=== PATIENT | female | born 1985 | race Caucasian/White ===

== ENCOUNTER 2018-08-27 13:53 | Emergency (ER) | payer SELFPAY ==
--- NOTE | 2018-08-27 18:22 | ER ---
Nurse's Notes [facility] Name: Fabienne Noland Age: 33 yrs Sex: Female : 1985 Arrival Date: 08/27/2018 Time: 13:58 Bed Waiting Private MD: None, None Diagnosis: Presentation: 08/27 14:39 Presenting complaint: Patient states: lump in left breast that patient noticed 5 days ss ago, but pain has been getting progressively worse as well as a rash that has developed on the skin. Transition of care: patient was not received from another setting of care. Onset of symptoms was August 23, 2018. Risk Assessment: Do you want to hurt yourself or someone else? Patient reports no desire to harm self or others. Initial Sepsis Screen: Does the patient meet any 2 criteria? No. Patient's initial sepsis screen is negative. Does the patient have a suspected source of infection? Yes: Skin breakdown/wound. Care prior to arrival: None. 14:39 Method Of Arrival: Ambulatory ss 14:39 Acuity: ANDREW 3 ss Historical: - Allergies: 14:42 No Known Allergies; ss - PMHx: 14:42 Anxiety; Depression; suicidal ideations; ss - PSHx: 14:42 c section; ss - Immunization history:: Adult Immunizations up to date. - Social history:: Smoking status: Patient/guardian denies using tobacco. - Ebola Screening: : Patient denies exposure to infectious person Patient denies travel to an Ebola-affected area in the 21 days before illness onset. Vital Signs: 14:42 BP 135 / 94; Pulse 83; Resp 15; Temp 97.9(TE); Pulse Ox 100% on R/A; Weight 77.11 kg; ss Height 5 ft. 8 in. (172.72 cm); Pain 10/10; 14:42 Body Mass Index 25.85 (77.11 kg, 172.72 cm) ss ED Course: 13:58 Patient arrived in ED. mr 13:58 None, None is Private Physician. mr 14:41 Triage completed. ss 14:42 Arm band placed on right wrist. ss 17:32 Patient's name was called from ER lobby. No response. aa5 17:48 Patient's name was called from ER lobby. No response. aa5 18:00 Patient's name was called from ER lobby. No response. aa5 18:15 Patient's name was called from [facility]. No response. aa5 18:22 Manny Martell MD is Attending Physician. aa5 Administered Medications: No medications were administered Outcome: 18:22 Patient left the ED. aa5 Signatures: LagosDeb mr IbarraJyoti, RN RN aa5 Jonna Fierro RN RN ss
[2018-08-27 19:07] VITALS: BP 135/94; TEMP 97.9; O2SAT 100
== END 2018-08-27 18:22 | disposition left against medical advice (07) ==
LOC: ER 13:53
DX: Z53.21 Procedure and treatment not carried out due to patient leaving prior to being seen by health care provider (principal)
CPT/HCPCS: 99281

== ENCOUNTER 2018-08-27 22:19 | Observation (INO) | payer SELFPAY ==
--- NOTE | 2018-08-27 23:09 | ER ---
Nurse's Notes [facility] Name: Fabienne Noland Age: 33 yrs Sex: Female : 1985 Arrival Date: 08/27/2018 Time: : Bed 14 Private MD: Diagnosis: Left breast abscess Presentation: 08/27 22:49 Presenting complaint: Patient states: she started having left breast pain on Thursday bb which has gotten progressively worse now has redness and there is a lump. Transition of care: patient was not received from another setting of care. Onset of symptoms was August 23, 2018. Risk Assessment: Do you want to hurt yourself or someone else? Patient reports no desire to harm self or others. Initial Sepsis Screen: Does the patient meet any 2 criteria? No. Patient's initial sepsis screen is negative. Does the patient have a suspected source of infection? Yes: Skin breakdown/wound. Care prior to arrival: None. 22:49 Method Of Arrival: Ambulatory bb 22:49 Acuity: ANDREW 3 bb Triage Assessment: 22:53 General: Behavior is calm, cooperative. 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 - Social history:: Smoking status: Patient uses tobacco products, smokes one pack cigarettes per day. Patient uses alcohol, occasionally. - Ebola Screening: : No symptoms or risks identified at this time. Screenin:53 Abuse screen: Denies threats or abuse. Nutritional screening: No deficits noted. bb Tuberculosis screening: No symptoms or risk factors identified. Fall Risk None identified. Assessment: 22:38 General: Appears in no apparent distress. uncomfortable. Pain: Complains of pain in bb left breast. Neuro: Level of Consciousness is awake, alert, obeys commands, Oriented to person, place, time, situation. Cardiovascular: No deficits noted. Respiratory: Respiratory effort is even, unlabored. GI: No signs and/or symptoms were reported involving the gastrointestinal system. : No signs and/or symptoms were reported regarding the genitourinary system. Derm: Abscess located on left breast. Musculoskeletal: Circulation, motion, and sensation intact. 22:50 Reassessment: Dr Hurt at bedside for discussion of findings and plan of care pt to be bb admitted for surgery I\T\D to left breast in the morning pt verbalized understanding of and agrees to plan of care. Vital Signs: 22:38 BP 147 / 103; Pulse 107; Resp 16 S; Temp 98.2(O); Pulse Ox 98% on R/A; Weight 79.38 kg bb (R); Height 5 ft. 8 in. (172.72 cm) (R); Pain 8/10; 22:38 Body Mass Index 26.61 (79.38 kg, 172.72 cm) bb ED Course: 22:15 Inserted saline lock: 20 gauge in right forearm, using aseptic technique. Blood rr5 collected. 22:23 Patient arrived in ED. ag3 22:33 Rafael Harris NP is PHCP. pm1 22:33 Storm Hurt MD is Attending Physician. pm1 22:33 Carmen Doan, GLADIS is Primary Nurse. bb 22:45 assisted Son Harris NP and Dr Hurt with breast exam. bb 22:51 Triage completed. bb 22:52 Arm band placed on Patient placed in an exam room, on a stretcher, on pulse oximetry. bb 22:53 Patient has correct armband on for positive identification. Bed in low position. Call bb light in reach. 22:56 BREAST/AXILLA, LIMITED In Process Unspecified. EDMS 23:08 Jmaes Black MD is Hospitalizing Provider. pm1 23:57 Patient admitted, IV remains in place. bb Administered Medications: 22:15 Drug: [place] 5 mg-325 mg 1 tabs Route: PO; rr5 23:54 Drug: Clindamycin 900 mg Route: IVPB; Infused Over: 30 mins; Site: right forearm; lp1 Outcome: 23:09 Decision to Hospitalize by Provider. pm1 23:51 Admitted to Med/surg bb 23:51 Condition: stable 23:51 Instructed on the need for admit. 08/28 00:01 Admitted to ER Hold. Please see [facility] for further documentation. bb 12:42 Patient left the ED. iw Signatures: Dispatcher [employer] EDMS Carmen Doan, GLADIS RN bb Shania Schwartz RN RN iw Isamar Ruiz RN RN lp1 Rafael Harris, ORNAMENTAL PLASTERER HELPER ORNAMENTAL PLASTERER HELPER pm1 Maria Del Carmen Mcdowell ag3 Juan Gonzales, RN RN rr5
[2018-08-27] MEDS ORDERED: ONDANSETRON 4 MG/2 ML VIAL IV PRN (23:10)
--- NOTE | 2018-08-27 23:10 | EDPHYS ---
Physician Documentation [facility] Name: Fabienne Noland Age: 33 yrs Sex: Female : 1985 Arrival Date: 08/27/2018 Time: 22:23 Bed 14 Private MD: ED Physician Storm Hurt HPI: 08/27 23:00 This 33 yrs old Female presents to ER via Ambulatory with complaints of pm1 Breast Problem. 23:00 the patient presents with a swollen area of the left breast. Description: swollen, pm1 tense. Onset: The symptoms/episode began/occurred 5 day(s) ago. Possible cause(s): unknown. Associated signs and symptoms: Pertinent negatives: discharge, drainage, fever. Modifying factors: the symptoms are alleviated by nothing, the symptoms are aggravated by touching. Severity of symptoms: in the emergency department the symptoms are actually worse. The patient has not experienced similar symptoms in the past. The patient has not recently seen a physician. Patient with onset of breast pain and tenderness Thursday that has progressively gotten worse. Patient removed nipple bar/piercing yesterday. Nipple piercings are 8 months old. 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 - Social history:: Smoking status: Patient uses tobacco products, smokes one pack cigarettes per day. Patient uses alcohol, occasionally. - Ebola Screening: : No symptoms or risks identified at this time. ROS: 23:00 Constitutional: Negative for fever, chills, and weight loss, Eyes: Negative for injury, pm1 pain, redness, and discharge, ENT: Negative for injury, pain, and discharge, Neck: Negative for injury, pain, and swelling, Cardiovascular: Negative for chest pain, palpitations, and edema, Respiratory: Negative for shortness of breath, cough, wheezing, and pleuritic chest pain, Abdomen/GI: Negative for abdominal pain, nausea, vomiting, diarrhea, and constipation, Back: Negative for injury and pain, MS/Extremity: Negative for injury and deformity. 23:00 Neuro: Negative for headache, weakness, numbness, tingling, and seizure. 23:00 Skin: Positive for abscess, cellulitis, of the left breast. Exam: 23:00 Constitutional: This is a well developed, well nourished patient who is awake, alert, pm1 and in no acute distress. Head/Face: Normocephalic, atraumatic. Eyes: Pupils equal round and reactive to light, extra-ocular motions intact. Lids and lashes normal. Conjunctiva and sclera are non-icteric and not injected. Cornea within normal limits. Periorbital areas with no swelling, redness, or edema. ENT: Nares patent. No nasal discharge, no septal abnormalities noted. Tympanic membranes are normal and external auditory canals are clear. Oropharynx with no redness, swelling, or masses, exudates, or evidence of obstruction, uvula midline. Mucous membranes moist. Neck: Trachea midline, no thyromegaly or masses palpated, and no cervical lymphadenopathy. Supple, full range of motion without nuchal rigidity, or vertebral point tenderness. No Meningismus. Chest/axilla: Normal chest wall appearance and motion. Nontender with no deformity. No lesions are appreciated. Cardiovascular: Regular rate and rhythm with a normal S1 and S2. No gallops, murmurs, or rubs. Normal PMI, no JVD. No pulse deficits. Respiratory: Lungs have equal breath sounds bilaterally, clear to auscultation and percussion. No rales, rhonchi or wheezes noted. No increased work of breathing, no retractions or nasal flaring. Abdomen/GI: Soft, non-tender, with normal bowel sounds. No distension or tympany. No guarding or rebound. No evidence of tenderness throughout. Back: No spinal tenderness. No costovertebral tenderness. Full range of motion. 23:00 MS/ Extremity: Pulses equal, no cyanosis. Neurovascular intact. Full, normal range of motion. 23:00 Skin: Appearance: normal except for affected area, abscess, that is moderate sized, approximately 3 cm(s), of the left nipple and left breast, with induration, no drainage, no pointing. 23:00 Neuro: Orientation: is normal, Motor: is normal, moves all fours. Vital Signs: 22:38 BP 147 / 103; Pulse 107; Resp 16 S; Temp 98.2(O); Pulse Ox 98% on R/A; Weight 79.38 kg bb (R); Height 5 ft. 8 in. (172.72 cm) (R); Pain 8/10; 22:38 Body Mass Index 26.61 (79.38 kg, 172.72 cm) bb MDM: 22:35 Patient medically screened. pm1 23:08 Data reviewed: vital signs. Data interpreted: Pulse oximetry: on room air is 98 %. pm1 Interpretation: normal. 23:10 Physician consultation: James Hurt discussed patient diagnosis condition pm1 with Dr. Black. Wayne requested IV antibiotic, IV fluids, pain mediations, NPO at midnight. He will evaluate the patient and drain abscess tomorrow. 08/27 22:46 Order name: CBC with Diff; Complete Time: 23:28 pm1 08/27 22:46 Order name: CMP; Complete Time: 23:43 pm1 08/28 00:09 Order name: Urine Dipstick--Ancillary (enter results) ms 08/28 00:09 Order name: Urine --Ancillary (enter results) ms 08/28 00:56 Order name: Urine --Ancillary; Complete Time: 01:57 EDMS 08/28 00:56 Order name: Urine Dipstick-Ancillary; Complete Time: 01:57 EDMS 08/27 22:46 Order name: IV Saline Lock; Complete Time: 23:17 pm1 08/27 22:46 Order name: Urine Test (obtain specimen); Complete Time: 23:54 pm1 08/27 22:46 Order name: Urine Dipstick-Ancillary (obtain specimen); Complete Time: 23:54 pm1 08/27 22:47 Order name: BREAST/AXILLA, LIMITED; Complete Time: 06:59 EDMS 08/27 23:18 Order name: NPO EDMS 08/27 23:03 Order name: NPO; Complete Time: 23:39 pm1 Administered Medications: 22:15 Drug: [place] 5 mg-325 mg 1 tabs Route: PO; rr5 23:54 Drug: Clindamycin 900 mg Route: IVPB; Infused Over: 30 mins; Site: right forearm; lp1 Disposition: 08/27/18 23:09 Hospitalization ordered by James Black for Observation. Preliminary diagnosis is Left breast abscess. - Bed requested for [facility] ER HOLD. - Status is Observation. iw - Condition is Stable. - Problem is new. - Symptoms have improved. UTI on Admission? No Addendum: 08/30/2018 06:59 Co-signature as Attending Physician, Storm Hurt MD. r n Signatures: Dispatcher [employer] [facility] Keila Deal RN RN fc Carmen Doan, RN RN bb Shania Schwartz RN RN iw Storm Hurt MD MD rn Pena, Laura, RN RN lp1 Rafael Harris, LEATHER PRODUCTION MACHINE OPERATOR LEATHER PRODUCTION MACHINE OPERATOR pm1 Juan Gonzales RN RN rr5 Corrections: (The following items were deleted from the chart) 08/27 22:47 22:47 Extrmty Nonvasular Limited+US.RAD.BRZ ordered. [facility] EDOH 23:28 23:09 Hospitalization Ordered by James Black MD for Observation. Preliminary diagnosis fc is Left breast abscess. Bed requested for Telemetry/MedSurg (observation). Status is Observation. Condition is Stable. Problem is new. Symptoms have improved. UTI on Admission? No. pm1 08/28 12:42 08/27 23:28 08/27/2018 23:09 Hospitalization Ordered by James Black MD for Observation. iw Preliminary diagnosis is Left breast abscess. Bed requested for [facility] ER HOLD. Status is Observation. Condition is Stable. Problem is new. Symptoms have improved. UTI on Admission? No. fc
[2018-08-27] MEDS ORDERED: HYDROCODONE/APAP 5/325 MG TAB ONE ×2 (23:17→23:24)
[2018-08-27 23:25] LABS: Absolute Lymphocytes (CBC) 3.7 K/uL (0.7-4.9); Absolute Monocytes 0.9 K/uL (0.1-1.3); Absolute Neutrophil 7.6 K/uL (1.8-8.0); Basophils % 0.9 % (0-1.3); Lymphocytes % 29.9 % (15.3-44.8); MCH 33.6 pg (27.0-35.0); MCV 95.7 fL (80-100); MPV 7.9 fL (7.6-11.3); Monocytes % 7.2 % (3.3-12.3)
[2018-08-27 23:41] LABS: ALT/SGPT 24 U/L (12-78); AST/SGOT 19 U/L (15-37); Albumin 3.7 g/dL (3.4-5.0); Alkaline Phosphatase 76 U/L (45-117); BUN Blood Urea Nitrogen 8 mg/dL (7-18); Bicarbonate 27 mmol/L (21-32); Bilirubin Total 0.4 mg/dL (0.2-1.0); Glucose Level 87 mg/dL (74-106); Potassium 3.6 mmol/L (3.5-5.1); Protein, Total 7.5 g/dL (6.4-8.2); Sodium Level 143 mmol/L (136-145)
[2018-08-27] MEDS ORDERED: CLINDAMYCIN 900MG/D5W 900 MG/50 ML IVPB IV ONE (23:43)
[2018-08-27] MEDS: D5 0.45 NS 1,000 ML IV SCH (23:45)
[2018-08-28 00:57] LABS: Urine Blood TRACE (NEG); Urine Glucose NEGATIVE (NEG); Urine Protein NEGATIVE (NEG); Urine Specific Gravity 1.015 (1.005-1.030)
[2018-08-28] MEDS: MORPHINE 4 MG/ML SYR IV PRN ×5 (01:00→20:55)
[2018-08-28] MEDS ORDERED: CLINDAMYCIN IV 150 MG/ML (4 mL) VIAL ONE (01:10)
[2018-08-28] MEDS ORDERED: D5 0.45 NS 1,000 ML IV ONE ×3 (01:12→14:19)
[2018-08-28] MEDS ORDERED: MORPHINE 4 MG/ML SYR ONE ×3 (01:12→09:34)
[2018-08-28 02:08] VITALS: BMI 26.6
[2018-08-28] MEDS ORDERED: ONDANSETRON 4 MG/2 ML VIAL ONE (05:50)
[2018-08-28] MEDS: D5 0.45 NS 1,000 ML IV SCH ×2 (07:45→15:45)
--- NOTE | 2018-08-28 08:51 | RAD REPORT ---
EXAM DESCRIPTION: US - BREAST/AXILLA, LIMITED - 08/27/2018 10:55 pm CLINICAL HISTORY: Left breast pain A preliminary report was provided at the time of the study and reviewed prior to final report. FINDINGS: In the retroareolar left breast there is a 3.1 centimeter irregularly-shaped hypoechoic ma ss. There is a general increase in vascularity in the surrounding peripheral tissues. Breast abscess is the most likely etiology. The abscess extends from the skin surface 2 cm deep. IMPRESSION: Proximally 3 centimeter retroareolar left breast abscess.
[2018-08-28] MEDS ORDERED: INFLUENZA VACCINE (for 3y+) 0.5 ML DOSE IMVAC ONE ×2 (09:00→09:35)
[2018-08-28] MEDS: CLINDAMYCIN PHOSPHATE 900 MG in NA CHLORIDE 0.9% 50 ML IV SCH ×2 (09:00→17:10)
[2018-08-28] MEDS ORDERED: CLINDAMYCIN 900MG/D5W 0 MG/0 ML IVPB IV ONE (09:34)
--- NOTE | 2018-08-28 11:37 | PREOPHP ---
Date of Admission: 08/27/2018 Reason: Left breast pain. History Of Present Illness: The patient is a 33-year-old female, presents with approximately a 4- to 5-day history of increasing pain and redness in the left breast. She denies any trauma or insect bi te. No fever or chills except for the left breast itself and no drainage from anywhere. Review of Systems: Otherwise unremarkable. Past Medical History: Negative. Past Surgical History: . Allergies: NO ALLERGIES. Social History: She does smoke and occasional alcohol. She is counseled. Family History: Noncontributory. Physical Examination: Vital Signs: Stable. She is afebrile. General: She is awake, alert, oriented x3. Head and Neck: Cranial nerves 2 through 12 are grossly within normal limits. No neck masses. No JV D. Throat clear. Neck is supple. Chest: Clear. Heart: S1, S2. Abdomen: Soft. Extremities: Neurovascularly intact. BREAST: Revealed on the left retroareolar region, there is a fluctuant mass and there is surrounding erythema, warmth, and edema. Laboratory Data: White count is 12.5. Chemistry reviewed. The patient has an ultrasound of the lef t breast shows a 3-cm retroareolar abscess. Assessment: Left breast abscess and cellulitis. Plan: Admit. N.p.o. IV fluid, IV antibiotic. To the OR for incision, drainage, and debridement. The patient understands the risks, benefits, and alternatives and agrees to procedure. MEME/JOBY Voice ID: [id number]
[2018-08-28] MEDS ORDERED: LIDOCAINE 1% MPF 5 ML VIAL ONE (12:41)
[2018-08-28] MEDS ORDERED: KETOROLAC 30 MG/ML INJ ONE (12:41)
[2018-08-28] MEDS ORDERED: FENTANYL CITR 100 MCG/2 ML ONE (12:41)
[2018-08-28] MEDS ORDERED: PROPOFOL 200 MG/20 ML VIAL IV ONE (12:41)
[2018-08-28] MEDS ORDERED: MIDAZOLAM HCL 2 MG/2 ML INJ ONE (12:41)
[2018-08-28] MEDS ORDERED: ONDANSETRON HCL 40 MG/20 ML VIAL ONE (12:42)
[2018-08-28] MEDS ORDERED: Ringers Lactate 1,000 ML IV ONE (12:46)
--- NOTE | 2018-08-28 13:13 | P.OP ---
Preoperative diagnosis: Abscess and cellulitis Left Breast Postoperative diagnosis: same Primary procedure: I and D and Debridement Left Breast Abscess, Bx Abscess Cavity Secondary procedure: same Anesthesia: General Estimated blood loss: min Specimen: pus and abscess wall Findings: as above Complications: None Transferred to: Recovery Room Condition: Good
[2018-08-28] MEDS: HYDROMORPHONE HCL 1 MG/ML INJ ONE ×4 (13:40→14:05)
--- NOTE | 2018-08-28 13:43 | OP ---
Date of Procedure: 08/28/2018 Surgeon: James Black MD Preoperative Diagnosis: Abscess cellulitis, left breast. Postoperative Diagnosis: Abscess cellulitis, left breast. Procedures: Incision, drainage, and debridement of left breast abscess and biopsy abscess of wall ca vity. Estimated Blood Loss: Minimal. Specimen: Pus and abscess wall. Finding: As above. Anesthesia: General. Complications: None. Disposition: The patient tolerated the procedure in stable condition and taken to Recovery in good g eneral condition. Procedure In Detail: The patient was brought to the OR and placed in the supine position. General a nesthesia begun. The patient was prepped and draped in the usual sterile fashion. Marcaine 0.5% was infiltrated locally. Then, at the nipple areolar and skin margin approximately 7-11 o'clock where i t was most fluctuant, a curvilinear skin incision was made. Subcutaneous tissues were divided, and d eep to that pus under pressure evacuated. Loculation broken up. Necrotic tissue debrided. Cultures done. The abscess wall cavity biopsy sent to Pathology. Wound irrigated. Bleeding controlled with cautery. Wet-to-dry normal saline dressing change was applied. The patient tolerated the procedure in stable condition, taken to Recovery in good general condition. /MODL Voice ID: [id number] Report ID: [id number]
[2018-08-28] MEDS: HYDROCODONE/APAP 7.5/325 MG TAB PO PRN (15:10)
[2018-08-28] MEDS ORDERED: CLINDAMYCIN PHOSPHATE 900 MG in NA CHLORIDE 0.9% 50 ML IV SCH (23:00)
[2018-08-29] MEDS: CLINDAMYCIN PHOSPHATE 900 MG in NA CHLORIDE 0.9% 50 ML IV SCH ×2 (00:31→09:07)
[2018-08-29] MEDS: D5 0.45 NS 1,000 ML IV SCH ×2 (00:31→04:53)
[2018-08-29] MEDS: MORPHINE 4 MG/ML SYR IV PRN ×4 (00:32→12:38)
[2018-08-29] MEDS: HYDROCODONE/APAP 7.5/325 MG TAB PO PRN ×2 (01:29→07:19)
[2018-08-29 05:08] LABS: Absolute Lymphocytes (CBC) 1.5 K/uL (0.7-4.9); Absolute Monocytes 0.5 K/uL (0.1-1.3); Absolute Neutrophil 6.6 K/uL (1.8-8.0); Basophils % 0.8 % (0-1.3); Eosinophils % 1.6 % (0-4.4); Hematocrit 39.4 % (36.0-45.0); MCH 33.7 pg (27.0-35.0); MCV 97.4 fL (80-100); MPV 7.9 fL (7.6-11.3); Monocytes % 5.9 % (3.3-12.3); RBC Red Blood Cell Count 4.05 M/uL (3.86-4.86)
[2018-08-29 10:33] VITALS: O2SAT 99
--- NOTE | 2018-08-29 10:43 | DS ---
Date of Discharge: 08/29/2018 Admitting Diagnosis: Abscess cellulitis, left breast. Discharge Diagnosis: Abscess cellulitis, left breast. Procedure Performed: Incision, drainage, and debridement of left breast abscess. Hospital Course: The patient is a 33-year-old female, who underwent the aforementioned procedure. P ostoperatively, she is tolerating diet, ambulating, pain controlled on p.o. pain medication, and afeb rile. Therefore, the patient will be discharged to home. Disposition: Home. Condition: Stable. Discharge Instructions: Resume home medications and diet. Activity as tolerated. No heavy lifting. Wet-to-dry normal saline dressing changes daily. Keflex 500 mg p.o. q.6 hours. Tylenol No. 3 one tablet p.o. q.4 hours p.r.n. pain. Follow up in my office in 1 to 2 weeks. Call for appointment. MEME/JOBY Voice ID: [id number] Report ID: [id number]
[2018-08-29 12:36] VITALS: BP 115/70; TEMP 98.2
== END 2018-08-29 13:50 | disposition home or self-care (01) ==
LOC: ER 22:19 → ERHOLD 23:25 → 2ND 08-28 13:50
PROVIDERS: ADMIT Surgery; ATTEND Surgery
PROC: 0H9U0ZZ Drainage of Left Breast, Open Approach (ICD-10-PCS; principal; 2018-08-28 13:00)
DX: N61.1 Abscess of the breast and nipple (principal); F17.210 Nicotine dependence, cigarettes, uncomplicated; Z23 Encounter for immunization
CPT/HCPCS: 36415; 76642; 80053; 81003; 81025; 85025; 87070; 87075; 87205; 88305; 96374; 99285; G0008; G0378; J1170; J2250; J2405; J2704; J3010; Q2035; S0077

== ENCOUNTER 2019-02-10 21:14 | Emergency (ER) | payer SELFPAY ==
[2019-02-10] MEDS ORDERED: TETRACAINE HCL 0.5% 4ML OPTH ONE (23:22)
[2019-02-10] MEDS ORDERED: FLUORESCEIN SODIUM 1 MG/WRAP ONE (23:22)
--- NOTE | 2019-02-11 00:06 | EDPHYS ---
Physician Documentation [facility] Name: Fabienne Noland Age: 33 yrs Sex: Female : 1985 Arrival Date: 02/10/2019 Time: 21:17 Bed 23 Private MD: ED Physician Manny Martell HPI: 02/11 00:00 This 33 yrs old Female presents to ER via Ambulatory with complaints of Eye lakisha Injury. 00:00 The patient sustained an abrasion, to the right eye. Onset: The symptoms/episode lakisha began/occurred just prior to arrival, today. Duration: the symptoms are continuous. Aggravated by blinking, closing eye, opening eye, pressure. Associated signs and symptoms: Pertinent negatives: None. Patient does not utilize any form of vision correction. Severity of symptoms: At their worst the symptoms were mild moderate in the emergency department the symptoms are unchanged. The patient has not experienced similar symptoms in the past. 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 - Social history:: Smoking status: Patient uses tobacco products, smokes one pack cigarettes per day. - Ebola Screening: : Patient negative for fever greater than or equal to 101.5 degrees Fahrenheit, and additional compatible Ebola Virus Disease symptoms Patient denies exposure to infectious person Patient denies travel to an Ebola-affected area in the 21 days before illness onset No symptoms or risks identified at this time. - Family history:: not pertinent. ROS: 02/11 00:00 Constitutional: Negative for fever, chills, and weight loss, ENT: Negative for injury, lakisha pain, and discharge, Neck: Negative for injury, pain, and swelling, Cardiovascular: Negative for chest pain, palpitations, and edema, Respiratory: Negative for shortness of breath, cough, wheezing, and pleuritic chest pain, Abdomen/GI: Negative for abdominal pain, nausea, vomiting, diarrhea, and constipation, Back: Negative for injury and pain, : Negative for injury, bleeding, discharge, and swelling, MS/Extremity: Negative for injury and deformity, Skin: Negative for injury, rash, and discoloration, Neuro: Negative for headache, weakness, numbness, tingling, and seizure, Psych: Negative for depression, anxiety, suicide ideation, homicidal ideation, and hallucinations, Allergy/Immunology: Negative for hives, rash, and allergies, Endocrine: Negative for neck swelling, polydipsia, polyuria, polyphagia, and marked weight changes, Hematologic/Lymphatic: Negative for swollen nodes, abnormal bleeding, and unusual bruising. Eyes: Positive for injury or acute deformity, pain, redness, of the iris of right eye. Exam: 00:00 Constitutional: This is a well developed, well nourished patient who is awake, alert, lakisha and in no acute distress. Head/Face: Normocephalic, atraumatic. ENT: Nares patent. No nasal discharge, no septal abnormalities noted. Tympanic membranes are normal and external auditory canals are clear. Oropharynx with no redness, swelling, or masses, exudates, or evidence of obstruction, uvula midline. Mucous membranes moist. Neck: Trachea midline, no thyromegaly or masses palpated, and no cervical lymphadenopathy. Supple, full range of motion without nuchal rigidity, or vertebral point tenderness. No Meningismus. Chest/axilla: Normal chest wall appearance and motion. Nontender with no deformity. No lesions are appreciated. Cardiovascular: Regular rate and rhythm with a normal S1 and S2. No gallops, murmurs, or rubs. Normal PMI, no JVD. No pulse deficits. Respiratory: Lungs have equal breath sounds bilaterally, clear to auscultation and percussion. No rales, rhonchi or wheezes noted. No increased work of breathing, no retractions or nasal flaring. Abdomen/GI: Soft, non-tender, with normal bowel sounds. No distension or tympany. No guarding or rebound. No evidence of tenderness throughout. Back: No spinal tenderness. No costovertebral tenderness. Full range of motion. Skin: Warm, dry with normal turgor. Normal color with no rashes, no lesions, and no evidence of cellulitis. MS/ Extremity: Pulses equal, no cyanosis. Neurovascular intact. Full, normal range of motion. Neuro: Awake and alert, GCS 15, oriented to person, place, time, and situation. Cranial nerves II-XII grossly intact. Motor strength 5/5 in all extremities. Sensory grossly intact. Cerebellar exam normal. Normal gait. Psych: Awake, alert, with orientation to person, place and time. Behavior, mood, and affect are within normal limits. 00:00 Eyes: Periorbital structures: appear normal, no acute changes, Pupils: no acute changes, equal, round, and reactive to light and accomodation, Extraocular movements: no acute changes, Conjunctiva: injected, in the right eye, Corneas: abrasion, that is small, on the right, at 9 o'clock, Sclera: no appreciated abnormality, Anterior chamber: normal, Lids and lashes: appear normal, no acute changes, funduscopic exam reveals no obvious abnormalities, no acute changes, Nystagmus: is not appreciated. Vital Signs: 02/10 21:42 BP 138 / 88; Pulse 66; Resp 18; Temp 97.2; Pulse Ox 100% on R/A; Weight 79.38 kg; ed1 Height 5 ft. 8 in. (172.72 cm); Pain 9/10; 21:42 Body Mass Index 26.61 (79.38 kg, 172.72 cm) ed1 Visual Acuity: 02/11 00:16 Left Eye Visual acuity 20/20, Pupil size 2 mm, Normal, Reactive To Accomodation; Right rv Eye Visual acuity 20/20, Pupil size 2 mm, Normal, Reactive To Accomodation; Both Eyes Visual acuity 20/20; Without Lenses; Procedures: 00:06 Performed stained right eye. [facility] MDM: 02/10 23:46 Patient medically screened. [facility] 02/11 00:03 Data reviewed: vital signs, nurses notes. 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 Exp: rv 12/02/2020. Lot #: [id number]. } Route: IM; Site: right deltoid; 02/11 00:15 Follow up: Response: Medication administered at discharge. rv 00:00 Drug: [place] 10 mg-325 mg 1 tabs Route: PO; rv 00:14 Follow up: Response: Medication administered at discharge. rv 00:14 Drug: Tobramycin Ointment (0.3 %) 1 application Route: Ophthalmic; Site: right eye; rv 00:15 Follow up: Response: Medication administered at discharge. rv Disposition: 02/11/19 00:05 Discharged to Home. Impression: Injury of conjunctiva and corneal abrasion without foreign body. - Condition is Stable. - Discharge Instructions: Corneal Abrasion, Corneal Abrasion, [id number]. - Prescriptions for Tylenol- Codeine #3 300-30 mg Oral Tablet - take 2 tablet by ORAL route every 6 hours As needed; 30 tablet. Vigamox 0.5 % Ophthalmic Drops - instill 1 drop by OPHTHALMIC route every 4 hours for 7 days; 5 milliliter. - Medication Reconciliation Form, Thank You Letter, Antibiotic Education, Prescription Opioid Use form. - Follow up: Brennan Flanagan MD; When: Today; Reason: Recheck today's complaints, Re-evaluation by your physician. - Problem is new. - Symptoms have improved. Signatures: Manny Martell MD MD cha Riggs, Erika, RN RN ed1 Rodrigo Donahue, RN RN rv Corrections: (The following items were deleted from the chart) 00:16 00:05 02/11/2019 00:05 Discharged to Home. Impression: Injury of conjunctiva and rv corneal abrasion without foreign body. Condition is Stable. Forms are Medication Reconciliation Form, Thank You Letter, Antibiotic Education, Prescription Opioid Use. Follow up: Brennan Flanagan; When: Today; Reason: Recheck today's complaints, Re-evaluation by your physician. Problem is new. Symptoms have improved. lakisha
--- NOTE | 2019-02-11 00:06 | ER ---
Nurse's Notes [facility] Name: Fabienne Noland Age: 33 yrs Sex: Female : 1985 Arrival Date: 02/10/2019 Time: 21:17 Bed 23 Private MD: Diagnosis: Injury of conjunctiva and corneal abrasion without foreign body Presentation: 02/10 21:40 Presenting complaint: Patient states: I was doing my community service and something ed1 scratched my eye. Transition of care: patient was not received from another setting of care. Mechanism of Injury: branch of tree scratched eye. The patient denies any loss of vision. Onset of symptoms was February 10, 2019. Risk Assessment: Do you want to hurt yourself or someone else? Patient reports no desire to harm self or others. Initial Sepsis Screen: Does the patient meet any 2 criteria? No. Patient's initial sepsis screen is negative. Does the patient have a suspected source of infection? No. Patient's initial sepsis screen is negative. Care prior to arrival: eye wash. 21:40 Method Of Arrival: Ambulatory ed1 21:40 Acuity: ANDREW 3 ed1 Triage Assessment: 21:42 General: Appears uncomfortable, Behavior is calm, cooperative. Pain: Complains of pain ed1 in right eye Pain currently is 9 out of 10 on a pain scale. EENT: Sclera/Cornea are reddened in right eye. 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 - Social history:: Smoking status: Patient uses tobacco products, smokes one pack cigarettes per day. - Ebola Screening: : Patient negative for fever greater than or equal to 101.5 degrees Fahrenheit, and additional compatible Ebola Virus Disease symptoms Patient denies exposure to infectious person Patient denies travel to an Ebola-affected area in the 21 days before illness onset No symptoms or risks identified at this time. - Family history:: not pertinent. Screenin:13 Abuse screen: Denies threats or abuse. Denies injuries from another. Nutritional rv screening: No deficits noted. Tuberculosis screening: No symptoms or risk factors identified. Fall Risk None identified. Assessment: 23:11 General: Appears in no apparent distress. uncomfortable, Behavior is calm, cooperative. rv Pain: Complains of pain in right eye. Neuro: Level of Consciousness is awake, alert, obeys commands, Oriented to person, place, time, situation. Cardiovascular: Capillary refill < 3 seconds. Respiratory: Airway is patent. GI: No signs and/or symptoms were reported involving the gastrointestinal system. : No signs and/or symptoms were reported regarding the genitourinary system. EENT: Eyes redness and tears noted on right eye.. EENT: Eyes Reports blurred vision in right eye. EENT: Eyes are tearing on right eye. EENT: Sclera/Cornea are clear in right eye. Derm: Skin is intact. Musculoskeletal: No signs and/or symptoms reported regarding the musculoskeletal system. Vital Signs: 21:42 BP 138 / 88; Pulse 66; Resp 18; Temp 97.2; Pulse Ox 100% on R/A; Weight 79.38 kg; ed1 Height 5 ft. 8 in. (172.72 cm); Pain 9/10; 21:42 Body Mass Index 26.61 (79.38 kg, 172.72 cm) ed1 Visual Acuity: 02/11 00:16 Left Eye Visual acuity 20/20, Pupil size 2 mm, Normal, Reactive To Accomodation; Right rv Eye Visual acuity 20/20, Pupil size 2 mm, Normal, Reactive To Accomodation; Both Eyes Visual acuity 20/20; Without Lenses; ED Course: 02/10 21:17 Patient arrived in ED. es 21:41 Triage completed. ed1 21:42 Arm band placed on right wrist. Patient placed in waiting room, in view of staff ed1 members, Patient notified of wait time. 23:07 Rodrigo Donahue RN is Primary Nurse. rv 23:13 Patient has correct armband on for positive identification. Bed in low position. Call rv light in reach. Side rails up X 1. Adult w/ patient. Pulse ox on. NIBP on. 23:46 Manny Martell MD is Attending Physician. [facility] 02/11 00:04 Brennan Flanagan MD is Referral Physician. [facility] 00:15 No provider procedures requiring assistance completed. Patient did not have IV access rv during this emergency room visit. 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 Exp: rv 12/02/2020. Lot #: [id number]. } Route: IM; Site: right deltoid; 02/11 00:15 Follow up: Response: Medication administered at discharge. rv 00:00 Drug: [place] 10 mg-325 mg 1 tabs Route: PO; rv 00:14 Follow up: Response: Medication administered at discharge. rv 00:14 Drug: Tobramycin Ointment (0.3 %) 1 application Route: Ophthalmic; Site: right eye; rv 00:15 Follow up: Response: Medication administered at discharge. rv Outcome: 00:05 Discharge ordered by . [facility] 00:15 Discharged to home ambulatory. 00:15 Condition: good 00:15 Discharge instructions given to patient, Instructed on discharge instructions, follow up and referral plans. medication usage, Demonstrated understanding of instructions, follow-up care, medications, Prescriptions given X 2. 00:16 Patient left the ED. rv Signatures: Manny Martell MD MD cha Salyer, Edna es Riggs, Erika RN RN ed1 Rodrigo Donahue, RN RN rv
[2019-02-11] MEDS ORDERED: HYDROCODONE/APAP 10/325 TAB ONE (00:16)
[2019-02-11] MEDS ORDERED: TETANUS & DIPHTHERIA TOX,ADULT 0.5 ML VIAL ONE (00:17)
[2019-02-11] MEDS ORDERED: TOBRAMYCIN SULF 0.3% OPTH OINT ONE (00:17)
[2019-02-11 01:17] VITALS: BP 138/88; TEMP 97.2; O2SAT 100
== END 2019-02-11 00:16 | disposition home or self-care (01) ==
LOC: ER 21:14
DX: S05.01XA Injury of conjunctiva and corneal abrasion without foreign body, right eye, initial encounter (principal); F17.210 Nicotine dependence, cigarettes, uncomplicated; Z23 Encounter for immunization
CPT/HCPCS: 90471; 90714; 99283

== ENCOUNTER 2021-03-21 17:51 | Emergency (ER) | payer SELFPAY ==
--- OUTSIDE RECORDS SUMMARY | 2021-03-21 18:00 | XMS REPORT | Continuity of Care Document ---
:1985 Author Organization [facility] t Address 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 Family History Family Member Diagnosis Comments Start Date Stop Date Source Natural father Hypertension [place] Anabaptism Natural mother Hypertension [place] Anabaptism Social History Social Habit Start Date Stop Date Quantity Comments Source History of tobacco Cigarette Smoker [place] use Anabaptism Cigarettes smoked 2016-12-11 2016-12-11 [place] current (pack per 00:00:00 00:00:00 Method) - Reported Alcohol intake 2016-12-11 2016-12-11 Current drinker [place] on 00:00:00 00:00:00 of alcohol Anabaptism (finding) Sex [birth year] [place] 00:00:00 00:00:00 Anabaptism Smoking Status Start Date Stop Date Source Current every day smoker 2016-12-11 00:00:00 Norma stoelsi Anabaptism Medications This patient has no known medications. Immunizations Ordered Immunization Filled Immunization Date Status Commen ts Source Name Name FLUZONE QUAD PF 2016-12-12 [facility] 00:00:00 Anabaptism Procedures This patient has no known procedures. Results This patient has no known results.
[2021-03-21 18:31] LABS: Urine Blood 1+ (Negative); Urine Glucose Negative (Negative); Urine Protein Negative (Negative); Urine Specific Gravity >=1.030 (1.005-1.030)
[2021-03-21] MEDS ORDERED: HYDROCODONE/APAP 5/325 MG TAB ONE (18:44)
[2021-03-21 19:29] LABS: Urine Specific Gravity/Preg >1.030 (1.005-1.030)
--- NOTE | 2021-03-21 19:31 | ER ---
Nurse's Notes [facility] Name: Fabienne Noland Age: 35 yrs Sex: Female : 1985 Arrival Date: 03/21/2021 Time: 17:53 Bed 8 Private MD: Diagnosis: Sciatica, left side Presentation: 03/21 17:56 Chief complaint: Patient states: i hurt my back 2 weeks ago, yesterday it hurts me so tw2 much and i just cant stand up straight at all. i feel my muscles tearing and pulling on my left side. Coronavirus screen: At this time, the client does not indicate any symptoms associated with coronavirus-19. Ebola Screen: Patient denies travel to an Ebola-affected area in the 21 days before illness onset. Initial Sepsis Screen: Does the patient meet any 2 criteria? No. Patient's initial sepsis screen is negative. Does the patient have a suspected source of infection? No. Patient's initial sepsis screen is negative. Risk Assessment: Do you want to hurt yourself or someone else? Patient reports no desire to harm self or others. Onset of symptoms was March 21, 2021. 17:56 Method Of Arrival: Wheelchair tw2 17:56 Acuity: ANDREW 4 tw2 Triage Assessment: 17:58 General: Appears in no apparent distress. slender, Behavior is drowsy, pt falling tw2 asleep while signing registration papers in triage room. pt easy wakes upon name being called. Pain: Complains of pain in back. Musculoskeletal: Circulation, motion, and sensation intact. Reports pain in back. Historical: - Allergies: 17:58 No Known Allergies; tw2 - Home Meds: 17:58 None [Active]; tw2 - PMHx: 17:58 None; tw2 - PSHx: 17:58 Left Breast; Left Foot; tw2 - Immunization history:: Adult Immunizations. - Social history:: Smoking status: Patient reports the use of cigarette tobacco products, smokes one pack cigarettes per day. Patient uses street drugs, marijuana, dime bag a day. Screenin:00 Abuse screen: Denies threats or abuse. Denies injuries from another. Nutritional bp screening: No deficits noted. Tuberculosis screening: No symptoms or risk factors identified. Fall Risk None identified. Assessment: 18:00 General: SEE TRIAGE NOTE. bp 19:25 Reassessment: walking in the hallway asked "where is she going and does she need help? rr5 she stated I will smoke. explained the policy not allowed to smoke, she responded "because of that I will go you cannot hold me here" ED provider aware. Vital Signs: 17:56 BP 109 / 77; Pulse 90; Resp 17; Temp 98.6(TE); Pulse Ox 100% on R/A; Weight 74.84 kg tw2 (R); Height 5 ft. 8 in. (172.72 cm); Pain 10/10; 17:56 Body Mass Index 25.09 (74.84 kg, 172.72 cm) tw2 ED Course: 17:53 Patient arrived in ED. as 17:57 Triage completed. tw2 17:59 Arm band placed on. tw2 18:00 Patient has correct armband on for positive identification. Bed in low position. Call bp light in reach. Side rails up X2. 18:05 Manny Davies PA is PHCP. cp 18:05 Daniel Petty MD is Attending Physician. cp 18:10 Killian Rodriguez, RN is Primary Nurse. bp 18:31 XRAY Lumbar Spine (3 Views) Sent. bp 19:30 No provider procedures requiring assistance completed. Patient did not have IV access rr5 during this emergency room visit. Administered Medications: 18:20 Drug: HYDROcodone-acetaminophen 5 mg-325 mg 1 tabs Route: Feeding Tube; bp Outcome: 19:30 Eloped from waiting room, after seeing physician Time discovered patient gone: March 21, rr5 2020 at 19:30 19:30 Condition: stable 19:32 Patient left the ED. rr5 Signatures: Grace Norwood as Manny Davies PA PA cp Morelia Clifford, RN RN tw2 Killian Rodriguez, RN RN bp Juan Gonzales, RN RN rr5 Corrections: (The following items were deleted from the chart) 18:08 17:56 Chief complaint: Patient states: i hurt my back 2 weeks ago, yesterday it hurt me tw2 so much and i just cant stand up straight at all. i feel my muscles tearing and pulling on my left side tw2
--- NOTE | 2021-03-21 19:31 | EDPHYS ---
Physician Documentation [facility] Name: Fabienne Noland Age: 35 yrs Sex: Female : 1985 Arrival Date: 03/21/2021 Time: 17:53 Bed 8 Private MD: ED Physician Daniel Petty HPI: 03/21 18:20 This 35 yrs old Female presents to ER via Wheelchair with complaints of Back cp Pain, Leg Pain. 18:20 The patient presents with pain that is acute, with no known mechanism of injury. cp 18:20 The symptoms are located in the low back. cp 18:20 Onset: The symptoms/episode began/occurred 2 week(s) ago. cp 18:20 The pain radiates to the left leg. Associated signs and symptoms: Pertinent negatives: cp abdominal pain, constipation, fever, incontinence, numbness, tingling, weakness. The problem was sustained from unknown cause. Severity of symptoms: in the emergency department the symptoms are unchanged, despite home interventions. Historical: - Allergies: 17:58 No Known Allergies; tw2 - Home Meds: 17:58 None [Active]; tw2 - PMHx: 17:58 None; tw2 - PSHx: 17:58 Left Breast; Left Foot; tw2 - Immunization history:: Adult Immunizations. - Social history:: Smoking status: Patient reports the use of cigarette tobacco products, smokes one pack cigarettes per day. Patient uses street drugs, marijuana, dime bag a day. ROS: 18:25 Back: Positive for pain at rest, pain with movement, of the left low back. cp 18:25 Constitutional: Negative for body aches, chills, fever, poor PO intake. cp 18:25 Cardiovascular: Negative for chest pain, palpitations. 18:25 Respiratory: Negative for cough, shortness of breath, wheezing. 18:25 Abdomen/GI: Negative for abdominal pain, nausea, vomiting, and diarrhea, constipation, bowel incontinence. Exam: 18:30 Constitutional: The patient appears in no acute distress, alert, awake, non-toxic, well cp developed, well nourished, uncomfortable. 18:30 Head/Face: Normocephalic, atraumatic. cp 18:30 Chest/axilla: Inspection: normal. 18:30 Cardiovascular: Rate: normal. 18:30 Respiratory: the patient does not display signs of respiratory distress, Respirations: normal, no use of accessory muscles, no retractions, labored breathing, is not present. 18:30 Abdomen/GI: Inspection: abdomen appears normal, Palpation: abdomen is soft and non-tender, in all quadrants. 18:30 Back: pain, that is moderate, of the left low back, ROM is painful, with all movement. 18:30 Neuro: Motor: moves all fours, strength is normal, Sensation: is normal, Gait: is steady, Deep tendon reflexes are 2+ (normal) in the right patellar, right Achilles, left patellar and left Achilles. Vital Signs: 17:56 BP 109 / 77; Pulse 90; Resp 17; Temp 98.6(TE); Pulse Ox 100% on R/A; Weight 74.84 kg tw2 (R); Height 5 ft. 8 in. (172.72 cm); Pain 10/10; 17:56 Body Mass Index 25.09 (74.84 kg, 172.72 cm) tw2 MDM: 18:08 Patient medically screened. cp 18:35 Differential diagnosis: ruptured disc, sciatica, cauda equina, spinal stenosis, bulging cp disc. 19:30 Data reviewed: vital signs, nurses notes. 03/21 18:31 Order name: Urine Dipstick-Ancillary [facility] 03/21 18:32 Order name: Urine --Ancillary (enter results) 03/21 18:13 Order name: Urine Dipstick-Ancillary (obtain specimen); Complete Time: 18:31 03/21 18:13 Order name: Urine Test (obtain specimen); Complete Time: 18:31 cp Administered Medications: 18:20 Drug: HYDROcodone-acetaminophen 5 mg-325 mg 1 tabs Route: Feeding Tube; bp Disposition: 19:35 Chart complete. 03/22 07:09 Co-signature as Attending Physician, Daniel Petty MD I agree with the assessment and kdr plan of care. Disposition: 03/21/21 19:31 Patient left the facility after being seen by provider. Preliminary diagnosis is Sciatica, left side. - Patient left due to (see nurse's notes). - Condition is Stable. - Problem is new. - Symptoms are unchanged. Signatures: [facility] Daniel Petty MD MD [facility] Manny Davies PA PA cp Morelia Clifford, RN RN tw2 Killian Rodriguez, RN RN bp Juan Gonzales, RN RN rr5 Corrections: (The following items were deleted from the chart) 03/21 19:26 18:50 Back: Positive for pain at rest, pain with movement, of the left low back, cp cp 19:32 19:31 03/21/2021 19:31 Patient left the facility after being seen by provider. rr5 Preliminary diagnosis is Sciatica, left side. Reason stated they are leaving due to (see nurse's notes). Condition is Stable. Problem is new. Symptoms are unchanged. cp
[2021-03-21 20:32] VITALS: BP 109/77; TEMP 98.6; O2SAT 100
== END 2021-03-21 19:32 | disposition left against medical advice (07) ==
LOC: ER 17:51
DX: M54.32 Sciatica, left side (principal); F17.210 Nicotine dependence, cigarettes, uncomplicated
CPT/HCPCS: 81003; 81025; 99283